=== PATIENT | female | born 1970 | race Caucasian/White ===

== ENCOUNTER 2016-10-09 17:59 | Inpatient (IN) | payer OTHER ==
--- NOTE | ~2016-10-09 | HM ---
Unit #: [id number] #: [id number] Patient: DANIS ROOT [id number] [address] [address] [id number] I MR#: [id number] NAME: DANIS ROOT. : 1970 SEX: F STUDY DATE/TIME: 10/23/2016 UNIT: C3A PCU ROOM: 330 STUDY DESCRIPTION: 24-hour Holter Attending Physician: Danis Canseco M.D. Primary Care Physician: No Primary Care Physician CARDIOLOGY REPORT EXAM 24-hour Holter monitor. FINDINGS The underlying rhythm is normal sinus rhythm with an average heart rate of 78 beats per minute, minimum heart rate of 52 beats per minute and a maximum heart rate of 122 beats per minute. The minimum heart rate of 52 beats per minute was noted at 4:19 a.m. The maximum heart rate of 122 beats per minute was noted at 8:28 a.m. The patient had a 0.76 second pause noted at 3:10 p.m. The patient had 72 single multifocal premature ventricular complex and 41 ventricular couplets noted. The patient had 7 ventricular bigeminy noted. The patient had a 7-beat run of ventricular tachycardia with a heart of 195 beats per minute noted at 6:10 a.m. The patient had 3-4 beat run of ventricular tachycardia noted. The patient had 53 single premature atrial complexes and 1 atrial couplet noted. CONCLUSION 1. Underlying rhythm is normal sinus rhythm with an average heart rate of 78 beats per minute, minimum heart rate of 52 beats per minute and a maximum heart rate of 122 beats per minute. 2. No sustained atrial or ventricular arrhythmias noted. 3. The patient had occasional single multifocal premature ventricular complex and ventricular couplets noted. 4. The patient had a total of 12 short runs of ventricular tachycardia. The longest one was a 7-beat run of ventricular tachycardia with a heart rate of 195 beats per minute. 5. Abnormal 24-hour Holter monitor. Dictated by.Tala Marcano TD: 10/23/2016 13:43 JOB #: [id number] Unit #: [id number] #: [id number] Patient: DANIS ROOT CARDIOLOGY REPORT Page 1 of 1 X Cheyenne Donovan MD <ELECTRONICALLY SIGNED> 02/14/17 1429 HOLTER MONITOR REPORT
--- NOTE | ~2016-10-09 | CO ---
Unit #: [id number] #: [id number] Patient: DANIS ROOT [id number] [facility]. [place], [place] [address] [id number] I MR#: [id number] NAME: DANIS ROOT ROOM: 330 Age: 46 Sex: F Admission Date: 10/09/2016 : 1970 Attending Physician: Luca De La Garza M.D. Consultation Date: 10/10/2016 CONSULTATION REPORT PRIMARY CARE PHYSICIAN Not listed. REASON FOR CONSULT Memory loss and forgetfulness. PATIENT IDENTIFICATION This is a 46-year-old right-handed, female, evaluated in room [address] [facility]. SOURCE OF INFORMATION Obtained from the patient's medical record and discussion with family and the patient; however, the patient is a poor historian. HISTORY OF PRESENT ILLNESS This is a 46-year-old right-handed, female with a past medical history of peptic ulcer disease that required partial gastrectomy, reformed smoker, right shoulder surgery, C-spine surgery, who presented to [facility] with change in mental status. The patient was apparently in her usual state of health until 4 days prior to presentation to our hospital. She woke up at that time about 4 days ago with difficulty using her cellphone, not knowing how to use the Internet, she was forgetful and having trouble performing simple tasks, unknowing what was going on around her. She had decreased p.o. intake. Given persistent symptoms, she was brought to the hospital for further evaluation. She has not had any symptoms of any focal motor or sensory deficits, any vision changes, slurred speech, loss of consciousness or loss of awareness, headache, pain, fever, chills, or any infectious or flu-like symptoms. Her urine tox screen was only positive for TCA. Her alcohol level was less than 5. She had a head CT done here that shows decreased attenuation in the left hemisphere and described per report is artifactual versus central etiology. Dr. Taylor reviewed imaging at the time of consultation. Her urinalysis did show some mild pyuria, but the patient is not symptomatic. She was given a gram of Rocephin in the ED and culture is pending. Also of note, her labs are notable for mild normocytic anemia and trace heme-positive stool. The patient is again a very poor historian. She lacks good insight and judgment. She is unable to contribute much in the way of history or review of systems. She has some right/left confusion. She does have some word finding difficulty. She can name and identify, but has difficulty answering some questions. PAST MEDICAL HISTORY 1. Peptic ulcer disease, requiring partial gastrectomy. 2. Right shoulder surgery. Unit #: [id number] #: [id number] Patient: DANIS ROOT 3. C-spine surgery. 4. Total abdominal hysterectomy. 5. x2. 6. Tonsillectomy. 7. Questionable hypertension. The patient is on hydrochlorothiazide according to her med rec. ALLERGIES Penicillin. FAMILY HISTORY Noncontributory. SOCIAL HISTORY The patient is , lives with her and children. She is a reformed smoker. She quit 2 years ago. She denies alcohol use or illicit drug use. REVIEW OF SYSTEMS Unable to obtain from the patient given that she is a very poor historian. PHYSICAL EXAMINATION VITAL SIGNS: Temperature 97.6; pulse 87; respirations 16; blood pressure 118/80, her blood pressure on arrival in the ER was 132/78, her lowest blood pressure has been 98/61 this morning; oxygen saturation 99% on room air. Height 5 feet 7 inches, weight 154 pounds. BMI 21. NEUROLOGIC: The patient is resting in chair comfortably, in no apparent distress. She is polite and cooperative, but not fully oriented. She is confused and unable to tell me why she is here. She is oriented to person. She is not able to tell me, where she is. I asked her if she can tell me where she thinks she might be and she looks around the room and she looks at me and says I am not sure. When I asked her about what city she is in, she states she is in [place], [place]. When I asked her where she lives, she states she lives in [facility]. When I asked her about the month, she states that it is September. When I asked her about the year, she tells me it is 2015. Her speech is clear. She has no apraxia. She can name and identify, but she does have some word-finding difficulty during exam. She can follow simple commands. When I asked her some questions about why she is here, she states that she does not know. When I asked her if she feels like she has been confused slightly, she does say yes. When I asked her how long, she states a few days. When I asked her to describe her symptoms, she is unable to elaborate further. She lacks appropriate insight and judgment. When I asked her what she would do if she was in a burning building, she states she is not sure. Cranial nerve exam, she responds to threats in the primary and peripheral visual carter. She consistently and repeatedly is able to identify correctly numbers presented in her visual carter in all 4 quadrants. No field cut appreciated. Her eyes are conjugate without ptosis or nystagmus. Her pupils are about 4+ brisk and equal. Extraocular movements are intact. Sensation of face and scalp is intact. Strength of muscles of facial expression is intact. Hearing is intact to finger rub and conversation. Tongue is midline. Uvula is midline. Palate elevation is normal. Head turning and shoulder shrug are unremarkable. Neck is supple. Motor exam, she demonstrates completely normal bulk and tone as well as strength 5/5 in all extremities. Sensory exam is intact. No extinction appreciated. Gait is normal. Romberg unremarkable. Reflexes 1/4. Toes are equivocal. Coordination, she does not have any difficulty in rapid alternating movements. She has not had any past-pointing seen. Unit #: [id number] #: [id number] Patient: DANIS ROOT No ataxia appreciated. DIAGNOSTIC STUDIES IMAGING STUDIES: CT of the head without contrast on 10/09/2016; impression per Radiology report shows decreased attenuation within the left periventricular white matter and along the flores-white matter junction in the region of the adame radiata. This could represent artifact, however, underlying focal encephalomalacia changes or encephalopathy not excluded. MRI of the brain without contrast on 10/10/2016; impression per Radiology report abnormal examination with multiple areas of abnormality restricted diffusion involving multiple vascular distributions, findings most concerning for recent shower of thromboemboli from relatively central thromboembolic source, please evaluate further clinically. Hardest area of involvement is seen in the left MCA territory. There is probable subtle mass effect but no hemorrhagic transformation, only minor pre-existing probable sequelae of small vessel disease. MRA of the head without contrast on 10/10/2016; impression per radiologist report. There is an abrupt cutoff in proximal left M2 vessel most consistent with a thromboembolus and consistent with etiology of area of recent ischemia involving the left MCA territory. On the accompanying brain MRI vascular variations are discussed above. No other area of intracranial vascular cutoff or central stenosis suspected. MRA of the neck. Full dictated report is pending, but is reported to me by Dr. Taylor is unremarkable. Chest x-ray portable single view on 10/09/2016, negative chest per Radiology report. LABORATORY RESULTS: Urine drug screen positive for TCA. White blood cell count 5.3, hemoglobin 10.3, hematocrit 30.7, and platelet count 119, repeat platelet count 120. BMP unremarkable other than estimated GFR of 51.4, her creatinine is 1.2. Alcohol level less than 5. Liver profile unremarkable. Lactic acid 1.2 with repeat lactic acid 1.2. TSH 1.70. Cholesterol 183, triglycerides 88, LDL 130, HDL 35. B12 500, ferritin 51. RPR non-reactive. Blood cultures preliminary, no growth after 24 hours x2 sets. Folic acid 10.4. Other labs and studies are as per chart and have been reviewed. CARDIOVASCULAR STUDIES: EKG; normal sinus rhythm. IMPRESSION 1. 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 2. Mild pyuria, culture pending. 3. Peptic ulcer disease, status post partial gastrectomy. 4. Hyperlipidemia, initiate intensive statin therapy. 5. Mild anemia with mildly heme-positive stool. PLAN 1. The patient has been seen and evaluated by Dr. Taylor and I have discussed the case with him at length. He discussed with the patient's Unit #: [id number] #: [id number] Patient: DANIS ROOT . He discussed with Dr. Garcia of Radiologist and also called the [facility] Stroke Team and discussed with Dr. Figueroa for a second opinion. The patient is well outside the window for any thrombectomy. She has a distal clot and again she is outside the window for acute interventional treatment. Apparently, clinically while she has cognitive deficits, is not showing any motor or sensory deficits and her abnormal findings on MRI are certainly concerning. We are putting the patient on bedrest and ordering a heparin drip. She does have some mild anemia, thrombocytopenia, and reportedly mild heme-positive stool, but at this point benefits outweigh the risks of starting heparin drip on this patient. We will monitor closely. Highest on the differential diagnosis is cardioembolic etiology and we have requested a TAY for Thursday morning and also Holter monitor. Speech therapy has been consulted to further evaluate and monitor. She has passed her bedside swallow evaluation. We started the patient on intensive statin therapy and the patient has received aspirin for an extensive workup including TAY, Holter monitor, lower extremity Dopplers to rule out DVT and hypercoagulable workup that was ordered prior to heparin drip being started. We have ordered a PICC line as the patient does not have any IV placement and again above orders have been ordered and are being initiated. No carotid disease to suggest etiology and again given distribution on MRI, I suspect a central embolic source and TAY is pending for Thursday. We will follow the patient closely along with you. She is not a candidate for acute intervention with alteplase or thrombectomy. She presented well outside the window with last known well 4 days prior to arrival. Please call for any questions or issues. We thank you very much for allowing us to assist in the care of this patient. Dictated by... Brandy Barrera A.P.R.N. for Tala Dorsey/funmi TD: 10/11/2016 03:49 JOB #: [id number] CONSULTATION REPORT X Brandy Barrera SUPERINTENDENT LOGGING X CONSULTATION REPORT
--- NOTE | ~2016-10-09 | CR72 ---
[facility] A Service of [facility] & [facility] RADIOLOGY TEXT RESULTS PATIENT: DANA ROOT LOCATION: [facility] 330-01 : [birth year] UNIT #: [id number] AGE: [address]: Dana Canseco MD SEX: F ORDER DR: [id number] [facility] [address] [facility]. [place], [place] [address] [id number] MR#: [id number] Acc #: [id number] NAME: DANA ROOT : 1970 SEX: F STUDY DATE/TIME: 10/09/2016 18:26 UNIT: [address] ROOM: [facility] STUDY DESCRIPTION: CR Chest Single View Portable Attending Physician: Kavya Barrios M.D. Ordering Physician: Barrington Watters M.D. Primary Care Physician: Primary Care Physician No MEDICAL IMAGING REPORT This report is preliminary unless electronic signature is present EXAM AP chest radiograph HISTORY Confusion, memory loss for 3 days, smoker. FINDINGS An AP view is obtained. The cardiovascular configuration is normal and the lungs are clear. Postsurgical changes of prior cervical fusion. CONCLUSION Negative chest. Dictated by... Salinas Elam M.D. THIS IS AN ELECTRONICALLY VERIFIED REPORT Salinas Elam M.D. at 10/13/2016 5:10 PM STACEY/jay TD: 10/10/2016 08:11 JOB #: [id number] MEDICAL IMAGING REPORT Page 1 of 1 COPY
--- NOTE | ~2016-10-09 | EKG ---
PATIENT: DANIS ROOT UNIT #: [id number] Ventricular Rate: 82 BPM Atrial Rate: 82 BPM P-R Interval: 158 ms QRS Duration: 84 ms Q-T Interval: 354 ms QTC Calculation(Bezet): 413 ms P [place]: 54 degrees Calculated R [place]: 28 degrees Calculated T [place]: 29 degrees Diagnosis Line: Normal sinus rhythm Diagnosis Line: Normal ECG Diagnosis Line: No previous ECGs available Diagnosis Line: Confirmed by XIOMARA BYNUM MD ([id number]) on 10/10/2016 Diagnosis Line: 12:07:42 PM INTERPRETING MD: FLETCHER VILLA
--- NOTE | ~2016-10-09 | MR18 ---
[facility] A Service of [facility] & [facility] RADIOLOGY TEXT RESULTS PATIENT: DANIS ROOT LOCATION: [facility] 330-01 : [birth year] UNIT #: [id number] AGE: [address]: Luca De La Garza MD SEX: F ORDER DR: [id number] [facility] [address] [facility]. [place], [place] [address] [id number] I MR#: [id number] Acc #: [id number] NAME: DANIS ROOT : 1970 SEX: F STUDY DATE/TIME: 10/10/2016 12:30 [facility] STUDY DESCRIPTION: MR Brain Wo Contrast Attending Physician: Luca De La Garza M.D. Ordering Physician: Lalit Taylor M.D. Primary Care Physician: Primary Care Physician No MRI CENTER REPORT This report is preliminary unless electronic signature is present. EXAM MRI brain without contrast HISTORY Acute memory loss, loss of motor skills for 2 days. Fell 2 days ago, did not hit head just was dizzy. No other symptoms. Earlier head CT abnormal. COMMENT MRI of the brain was performed without contrast using routine 1.5T imaging technique. Comparison head CT is from 10/09/2016. There are multiple areas of abnormally restricted diffusion including multiple foci of abnormality involving the left lateral frontal lobe, left insula more superiorly and posteriorly, portions of the left temporal lobe more posteriorly and superiorly and portions left parietal lobe. Additionally, there are small foci of restricted diffusion seen in the right posterior temporal to anterior occipital lobe, right posterior medial temporal lobe and right insula, right lateral frontal lobe, deep white matter of the right frontal adame radiata and right parietal deep white matter. There is a punctate focus of restricted diffusion in the left cerebellar hemisphere. The largest area of restricted diffusion is in the left MCA territory and corresponds to abnormal low attenuation on the earlier head CT. There is mild local mass effect but no midline shift and the findings are most suggestive of recent shower of thromboemboli from a relatively central source given multiple vascular distribution involvement. Mild local mass effect but no midline shift. The ventricles are normal in size and configuration. There is probably mild preexisting white matter disease due to small vessel disease. The distal right vertebral artery is hypoplastic or diseased. The intracranial flow voids at the base of the brain are patent. See the separate MR angiogram dictation however for a description of what appears to be a cutoff left M2 vessel. No MRI evidence for intracranial hemorrhage. Mastoid air cells clear. Mild paranasal sinus mucosal thickening. Borderline cerebellar STS. [facility] A Service of [facility] RADIOLOGY TEXT RESULTS PATIENT: DANIS ROOT LOCATION: C3A 330-01 : [birth year] UNIT #: [id number] AGE: [address]: Luca De La Garza MD SEX: F ORDER DR: tonsillar ectopia. I suspect some subtle signal abnormality in the bilateral globus pallidi and medial putamen on the T1-weighted sequence. This raises possibility of some underlying liver disease or prior hyperalimentation. Please correlate further clinically. IMPRESSION 1. Abnormal examination with multiple areas of abnormally restricted diffusion involving multiple vascular distributions. Findings most concerning for recent shower of thromboemboli from a relatively central thromboembolus source. Please evaluate further clinically. Largest area of involvement is seen in the left MCA territory. There is probably subtle mass effect but no hemorrhagic transformation. Only minor preexisting probable sequelae of small vessel disease. 2. See separate MR angiogram dictation. 3. I have spoken to Dr. Taylor about the case at the end of this dictation. STAT * RESULT Dictated by... Kym Garcia M.D. THIS IS AN ELECTRONICALLY VERIFIED REPORT Kym Garcia M.D. at 10/10/2016 4:00 PM HANNA/jay TD: 10/10/2016 13:34 JOB #: [id number] MRI CENTER REPORT COPY
--- NOTE | ~2016-10-09 | EKG ---
PATIENT: DANIS ROOT UNIT #: [id number] Ventricular Rate: 78 BPM Atrial Rate: 78 BPM P-R Interval: 162 ms QRS Duration: 82 ms Q-T Interval: 328 ms QTC Calculation(Bezet): 373 ms P [place]: 54 degrees Calculated R [place]: 34 degrees Calculated T [place]: 34 degrees Diagnosis Line: Normal sinus rhythm Diagnosis Line: Nonspecific T wave abnormality Diagnosis Line: Abnormal ECG Diagnosis Line: When compared with ECG of 09-OCT-2016 17:47, Diagnosis Line: T wave inversion now evident in Anterior leads Diagnosis Line: Confirmed by HARRISON BROCK MD ([id number]) on Diagnosis Line: 10/12/2016 8:04:53 PM INTERPRETING MD: TORRI
--- NOTE | ~2016-10-09 | DS ---
Unit #: [id number] #: [id number] Patient: DANIS ROOT [id number] [address] [address] [id number] I MR#: [id number] NAME: DANIS ROOT ROOM: 330 Age: 46 Sex: F Admission Date: 10/09/2016 : 1970 Discharge Date: 10/13/2016 Attending Physician: Danis Canseco M.D. DISCHARGE SUMMARY ADDENDUM Medical management, the patient's stroke has been discussed again with Dr. Taylor. With this time, he is recommending discontinuation of aspirin and placing the patient on Plavix 75 mg p.o. daily, prescription written. Dictated by... Tala Lane/funmi TD: 10/14/2016 08:47 JOB #: [id number] DISCHARGE SUMMARY Page 1 of 1 X Danis Canseco MD X DISCHARGE SUMMARY
--- NOTE | ~2016-10-09 | HP ---
Unit #: [id number] #: [id number] Patient: DANIS ROOT [id number] [address] [place], [place] [address] [id number] I MR#: [id number] NAME: DANIS ROOT. ROOM: 330 Age: 46 Sex: F Admission Date: 10/09/2016 : 1970 Attending Physician: Kavya Barrios M.D. Primary Care Physician: No Primary Care Physician HISTORY AND PHYSICAL CHIEF COMPLAINT Acute forgetfulness/memory loss. HISTORY This pleasant 46-year-old female with history of partial gastrectomy for peptic ulcer disease, chronic neck pain, is admitted for memory loss and forgetfulness. The patient's states that she was in her usual state of health until four days prior to admission. She woke up four days ago very forgetful, unable to use her cell phone/internet. She has had decreased p.o. intake, and is unable to retain information. No infectious symptoms, changes in medications, no previous symptoms in the past. She was brought to this emergency department where she does seem very forgetful for her age. Urine tox screen positive for TCAs only. Head CT shows decreased attenuation left hemisphere, which could be artifactual versus other. Urinalysis does show mild pyuria, although patient denies any symptoms of urinary tract infection. This may be related to contamination as opposed to a true UTI. In the ER she is given 1 g of Rocephin. Labs are also notable for mild normocytic anemia with trace heme positive stool. PAST MEDICAL HISTORY 1. Peptic ulcer disease requiring partial gastrectomy. 2. Right shoulder surgery. 3. C-spine surgery. 4. Patient plans to have a repeat cervical spine surgery in the past due to impingement of a nerve on the left side according to . 5. Total abdominal hysterectomy. 6. x2. 7. Tonsillectomy. ALLERGIES Penicillin. HOME MEDICATIONS Low dose hydrocodone. FAMILY HISTORY Negative for neurogenic disease. SOCIAL HISTORY The patient lives with her . She stopped smoking two years ago and does not drink alcohol. Unit #: [id number] #: [id number] Patient: DANIS ROOT REVIEW OF SYSTEMS Difficult to obtain as patient is very forgetful. PHYSICAL EXAMINATION GENERAL: Pleasant 46-year-old female currently in no acute distress. VITAL SIGNS: Temperature 97.5, pulse 89, respirations 12, blood pressure 132/78, O2 saturation 100% on room air. HEENT: Eyes - PERRLA. Extraocular muscles are intact. Pharynx is benign with partial dentures in place. NECK: Supple without adenopathy or thyromegaly. CHEST: Clear. CARDIAC: Normal S1 and S2 without murmur. ABDOMEN: Bowel sounds are present. No hepatosplenomegaly, tenderness or masses. EXTREMITIES: Without clubbing, cyanosis or edema. Pedal pulses are present. NEUROLOGIC: Patient is awake, alert. She is oriented to person and place but not to year or month. Her cranial nerves show a slight right lower facial droop. She has +5/5 strength throughout. Has difficulty with rapid alternating movements on the left, normal [id number], negative pronator drift. DIAGNOSTIC STUDIES ADMISSION LABS: Hematocrit is 30.7 without previous labs for comparison, normal white count, platelet count is 119, normal MVC. SMA 12 is normal. Alcohol level - lactic acid negative. Urine tox screen positive for TCA. Urinalysis - 2+ leukocyte esterase, 1+ protein/glucose, 10-25 white cells, but no bacteria. A few squamous cells seen. IMAGING STUDIES: Head CT - decreased attenuation left hemisphere, which could be artifactual versus other. Chest x-ray is negative. CARDIOLOGY STUDIES: EKG shows a normal sinus rhythm, rate 82, normal appearing. ASSESSMENT 1. Acute memory loss for the past four days. There are some subtle changes in left hemisphere on CT scan. Patient does have a mild right lower facial droop and difficulty with rapid alternating movements on the left. 2. Mild pyuria, rule out UTI versus contamination. 3. Peptic ulcer disease, status post partial gastrectomy. Patient was recently started on some B12 pills. 4. Chronic neck pain with plans for repeat C-spine surgery in the future. 5. Mild normocytic anemia with trace Hemoccult positive stool. PLANS 1. MRI of the brain. 2. Antibiotics pending urine C and S. 3. Neurology consultation. 4. Check B12 level, thyroid function test, VDRL. 5. Low dose aspirin with H2 jem pending above. 6. Repeat labs in the morning. Unit #: [id number] #: [id number] Patient: DANIS ROOT Dictated by Kavya Barrios M.D. AML/michelle TD: 10/10/2016 08:25 JOB #: [id number] CC: Dennis HISTORY AND PHYSICAL X Kavya Barrios MD HISTORY AND PHYSICAL
--- NOTE | ~2016-10-09 | DS ---
Unit #: [id number] #: [id number] Patient: DANA ROOT [id number] [address] [address] [id number] I MR#: [id number] NAME: DANA ROOT ROOM: 330 Age: 46 Sex: F Admission Date: 10/09/2016 : 1970 Discharge Date: 10/13/2016 Attending Physician: Dana Canseco M.D. Primary Care Physician: Primary Care Physician No DISCHARGE SUMMARY PRIMARY CARE PROVIDER MD2U. PRINCIPAL DIAGNOSES 1. Multifocal bilateral embolic cerebrovascular accident including the left lateral frontal lobe, left insula, left temporal lobe, right posterior temporal lobe, right lateral frontal lobe, and deep white matter in the right frontal adame radiata and right parietal deep white matter. 2. Nonsustained ventricular tachycardia. 3. Hyperlipidemia. 4. Normocytic anemia. 5. Mild thrombocytopenia. Discharge platelet count 132. 6. Hypokalemia. 7. Obstructive sleep apnea. 8. Pyuria with negative urine culture. 9. Chronic neck pain, maintained on narcotics. 10. Gastroesophageal reflux disease. CONSULTANTS Dr. Donovan, Cardiology; Dr. Taylor, neurology. PROCEDURES 1. TAY on 10/13/2016 with an ejection fraction of 60%. No evidence of PFO or atrioseptal defect. No clot in the left atrial appendage. Mild mitral and tricuspid regurgitation, mild to moderate diffuse atherosclerosis noted. 2. CT of the head without contrast on 10/09/2016 with subtle foci of decreased attenuation, left periventricular white matter along the flores-white junction. Chest x-ray on 10/09/2016 which was normal. 3. MRI of the brain without contrast on 10/10/2016 with some multiple areas of restricted diffusion involving multiple vascular distributions. Largest area of involvement in the left MCA territory. There is subtle mass effect, but no hemorrhagic transformation. 4. MRA of head and neck on 10/10/2016 with cutoff in the proximal left M2 vessel consistent with thromboembolic origin. 5. Bilateral extremities venous Doppler, which was negative for DVT. CLINICAL HISTORY AND HOSPITAL COURSE Ms. Root is a 46-year-old female, who presents to the emergency department with increasing forgetfulness and memory loss. She was supposedly on narcotics, the number found in her system upon presentation. CT of the head done in the emergency department was concerning for stroke. Urinalysis was also concerning for urinary tract Unit #: [id number] #: [id number] Patient: DANA ROOT infection. The patient was subsequently admitted. Dr. Taylor was consulted regarding abnormal CT scan of the head. The patient underwent MRI revealing multifocal areas of stroke concerning for embolic origin. The patient was placed on heparin drip to subsequently underwent TAY which was relatively unremarkable. Plan is for her to transition to aspirin therapy and she will be arranged a LINQ device at [facility]. The patient's mental status returned to normal on treatment. She is back on a reduced dose of narcotics, which may have been playing a role. In regard to patient's pyuria, she was placed on Rocephin, but urine culture is negative. We will discontinue any further antibiotics. The patient was also mildly anemic and mildly hypokalemic. Potassium was replaced and anemia can be followed up as an outpatient. Please note, the patient did have a short run of nonsustained ventricular tachycardia and perhaps arrhythmias are contributing to her stroke given no abnormalities or finding on her TAY, again this can be reevaluated at [facility]. DISCHARGE CONDITION Stable. DISCHARGE STATUS Discharged to home. DISCHARGE MEDICATIONS Aspirin 325 mg daily, Lipitor 40 mg at bedtime, Carafate 1 g p.o. t.i.d. with meals and at bedtime, hydrocodone 10/325 one tablet p.o. t.i.d. p.r.n. for pain. DISCHARGE INSTRUCTIONS The patient was instructed to follow a heart healthy diet. She can increase her activity as tolerated. FOLLOWUP The patient will follow up with [facility] and perhaps be evaluated for a LINQ device. Dictated by... Dana Canseco M.D. CHRIS/funmi TD: 10/14/2016 09:13 JOB #: [id number] Unit #: [id number] #: [id number] Patient: DANA ROOT DISCHARGE SUMMARY Page 1 of 1 X Dana Canseco MD X DISCHARGE SUMMARY
--- NOTE | ~2016-10-09 | US84 ---
[id number] [facility] [address] [facility]. [place], [place] [address] [id number] I MR#: [id number] Acc #: [id number] NAME: DANIS ROOT : 1970 SEX: F STUDY DATE/TIME: 10/10/2016 15:49 UNIT: C3A PCU ROOM: 330 STUDY DESCRIPTION: US LE Veins Complete Meliton Stdy Attending Physician: Luca De La Garza M.D. Ordering Physician: Lalit Taylor M.D. Primary Care Physician: Primary Care Physician No MEDICAL IMAGING REPORT This report is preliminary unless electronic signature is present EXAM Bilateral lower extremity venous Doppler INDICATION Factor 5 deficiency. Observation for DVT. Additional clinical history of bilateral lower extremity pain, swelling and shortness of air, acute onset. PROCEDURE Love-scale, color Doppler and spectral imaging deep veins of the right and left leg. COMPARISON None. FINDINGS The deep veins in the right and left leg compress normally, show normal color Doppler and spectral characteristics. IMPRESSION No evidence for DVT in the right or left leg. Dictated by... Jordan Hdz M.D. THIS IS AN ELECTRONICALLY VERIFIED REPORT Jordan Hdz M.D. at 10/13/2016 7:22 AM JOSEP/jay TD: 10/11/2016 09:15 JOB #: [id number] MEDICAL IMAGING REPORT COPY
--- NOTE | ~2016-10-09 | CO ---
Unit #: [id number] #: [id number] Patient: DANIS ROOT [id number] [address] [place], [place] [address] [id number] I MR#: [id number] NAME: DANIS ROOT ROOM: 330 Age: 46 Sex: F Admission Date: 10/09/2016 : 1970 Attending Physician: Luca De La Garza M.D. Consultation Date: 10/11/2016 CONSULTATION REPORT This patient is whom Dr. Castro was consulted. REASON FOR CONSULTATION Nonsustained ventricular tachycardia. HISTORY OF PRESENT ILLNESS This is a 46-year-old white female with history of partial gastrectomy for peptic ulcer disease. She has chronic neck pain, reformed smoker, came into the emergency room with 2- to -3 day history of worsening forgetfulness, memory loss, and unable to hold things properly with a fine hand grasp. Her was concerned and brought her in. She was found MRI of the brain and MRA of the head to have multiple embolic infarcts and ischemic left MCA territorial stroke. The patient has been started on aspirin and heparin drip. She still having some problems with memory, but is overall improving. On 6:15 a.m., she had short run of 7-beat of nonsustained ventricular tachycardia and occasional frequent PVCs. Cardiology has been asked to assist with evaluation and management. She has been scheduled a transesophageal echocardiogram in 2 days to evaluate for cardioembolic source of her stroke. On interview and exam, the patient has never has been seen by a development mechanic in the past. She denies ever having a stress test, and denies any chest pain, pain in her neck, bilateral jaws, shoulders, arms, or elbow. She denies any palpitations. No dizziness, presyncope, or syncope, and denies paroxysmal nocturnal dyspnea or orthopnea. PAST MEDICAL HISTORY 1. Partial gastrectomy for peptic ulcer disease. 2. Chronic neck pain, needs repeat cervical spine surgery for impingement of the nerve. 3. Reformed smoker. PAST SURGICAL HISTORY Cervical spine surgery about 1 year ago, had partial gastrectomy for peptic ulcer disease about 2 years ago. HOME MEDICATIONS Hydrocodone/acetaminophen 10/325 one tablet p.o. t.i.d. p.r.n.; Carafate one tablet p.o. before meals and at bedtime. ALLERGIES Penicillin. SOCIAL HISTORY Unit #: [id number] #: [id number] Patient: DANIS ROOT The patient lives with her spouse. She is on disability, because of her neck and ulcer disease. She quit smoking two years ago, was a pack a day smoker for about 30 years. No alcohol or illicit drug abuse. FAMILY HISTORY Her mother from overdose. Her father of Saniya Gehrig disease and her sibling is in generally well health. REVIEW OF SYSTEMS See details in HPI. PHYSICAL EXAMINATION GENERAL: Ms. Root is a 46-year-old white female, in no acute respiratory distress. She is awake, alert, and does have some poor memory recall. Answers some questions appropriately. Moving all extremities well. VITAL SIGNS: Blood pressure 112/70, heart rate 80, respirations 20, temperature 97.9, O2 sats 100% on room air. NECK: Trachea midline. No thyromegaly or lymphadenopathy. Normal carotid upstrokes. No jugular venous distention. HEART: S1, S2. Regular rate and rhythm. No clicks, murmurs, or rubs. LUNGS: Diminished, otherwise clear. ABDOMEN: Soft, nontender. Positive bowel sounds present. No hepatosplenomegaly. EXTREMITIES: Pedal pulses are palpable. No pedal edema. DIAGNOSTIC STUDIES LABORATORY RESULTS: Glucose is 121, BUN 17, creatinine 1.2, eGFR is 51.4. Sodium 139, potassium 3.9, chloride 103, CO2 of 24, calcium is 9.6, total protein 7.3, albumin 4.2, bilirubin total 0.4, AST 23, ALT 11, alkaline phosphatase is 86. Fasting lipid profile; cholesterol is 183, triglycerides 88, LDL is 130, HDL 35, TSH is 1.70. Alcohol level less than 5. WBCs 6.1, hemoglobin 10.1, hematocrit 30.2, and platelets is 120. Protime is 10.6 with an INR of 1.0. Urine tox screen positive for tricyclic. Urinalysis; 2+ leukocyte esterase, 1+ protein, 100 glucose, 0.2 urobilinogen, 10 to 25 wbc's. Blood cultures, preliminary findings are negative so far. IMAGING STUDIES: Chest x-ray on admission shows nothing acute. CT of the head without contrast showed decreased attenuation in the left periventricular white matter and in the flores-white junction at the region of the adame radiata. MRI of the brain without contrast showed abnormal exam with multiple areas of abnormality involving multiple vascular distributions most concerning for recent shower of thromboembolic source, that is seen mostly in the left MCA territory. There was no mass effect. No hemorrhagic transformation. MRA of the head shows an area of recent ischemia involving the left MCA territory. MRA of the neck normal. Bilateral lower extremity venous Doppler studies negative for DVT. Unit #: [id number] #: [id number] Patient: DANIS ROOT CARDIOVASCULAR STUDIES: EKG on admission showed normal sinus rhythm with ventricular rate of 82 beats per minute, nothing acute. Telemetry early this morning showed a 7-beat run of nonsustained ventricular tachycardia. Possibly 3- to -4 beat run of atrial fibrillation and occasional PACs and occasional PVC. IMPRESSION 1. Acute embolic ischemic left middle cerebral artery infarcts. 2. Nonsustained ventricular tachycardia. 3. Hyperlipidemia. 4. Pyuria. 5. Anemia. PLAN 1. Cardiology consult to evaluate the patient's nonsustained ventricular tachycardia. So far, there is only one episode while she was sleeping, questionable sleep apnea, because we will order labs today. There has not been labs drawn today to check her potassium and magnesium level. 2. Her TSH is normal. 3. She is drinking a lot of Mountain Dew, which is at the bedside, encourage the patient to stop and taking of caffeinated beverages, she was agreeable. On exam, there was no signs or symptoms of unstable angina or acute congestive heart failure. The patient will need ischemic heart disease workup at some time. She did have a 2D echo that shows her LVEF is 60% with no significant valvular disease. There is plan for a TAY on Thursday with Dr. Donovan to evaluate for cardioembolic source of her stroke. The patient is on IV Rocephin for possible UTI. 4. The patient is on a statin for her hyperlipidemia and she is also on aspirin besides the heparin drip for anticoagulation at this time. 5. At this time, we just watch her rhythm after discussion with Dr. Tineo, that is his recommendation, as she does have a Holter monitor on. 6. Further recommendations pending per Dr. Tineo. Thank you very much for allowing us to assist in care. Dictated by... Vanessa Gaitan A.P.R.N. for Tala Meneses/funmi TD: 10/11/2016 16:15 JOB #: [id number] CONSULTATION REPORT X Vanessa Gaitan APRN X CONSULTATION REPORT
--- NOTE | ~2016-10-09 | XA166 ---
[facility] A Service of [facility] & [facility] RADIOLOGY TEXT RESULTS PATIENT: DANIS ROOT LOCATION: [facility] 330- : [birth year] UNIT #: [id number] AGE: [address]: Luca De La Garza MD SEX: F ORDER DR: [id number] [facility] [address] [facility]. [place], [place] [address] [id number] I MR#: [id number] Acc #: [id number] NAME: DANIS ROOT : 1970 SEX: F STUDY DATE/TIME: 10/10/2016 14:39 UNIT: C3A [facility] ROOM: 330 STUDY DESCRIPTION: XA PICC Line Placement WO Port Attending Physician: Luca De La Garza M.D. Ordering Physician: Luca De La Garza M.D. Primary Care Physician: No Primary Care Physician MEDICAL IMAGING REPORT This report is preliminary unless electronic signature is present EXAM PICC placement with ultrasound and fluoroscopic guidance HISTORY Venous access needed for medications. TECHNIQUE The procedure was explained to the patient including risks, benefits and complications. Informed consent was obtained and a formal time-out procedure was utilized. Full barrier sterile technique was employed via standard protocol. Using full barrier sterile technique and following local anesthesia with 1% Xylocaine, a brachial vein was punctured above the elbow on the right with ultrasound guidance. Ultrasound was used to confirm vessel patency which was confirmed and permanent ultrasound images were recorded. An 0.018 guidewire was passed in the superior vena cava under fluoroscopic guidance. A dilator and sheath were placed over the wire. A 5-[place] double-lumen PICC was measured to 38 cm cut and deployed with the tip positioned in the lower superior vena cava. Line was secured in place with an antibiotic patch and adhesive dressing. Total fluoroscopy time 0.1 minutes with a total dose of 1 mGy. IMPRESSION Successful placement of a 5-[place] double-lumen PICC via the right brachial vein above the elbow with ultrasound and fluoroscopic guidance. Dictated by... Barrington Saucedo M.D. THIS IS AN ELECTRONICALLY VERIFIED REPORT Barrington Saucedo M.D. at 10/12/2016 9:40 PM RLF/rnr [facility] [place] Service of [facility] & [facility] RADIOLOGY TEXT RESULTS PATIENT: DANIS ROOT LOCATION: [facility] 330-01 : [birth year] UNIT #: [id number] AGE: [address]: Luca De La Garza MD SEX: F ORDER DR: TD: 10/11/2016 02:23 JOB #: [id number] MEDICAL IMAGING REPORT COPY
--- NOTE | ~2016-10-09 | MR134 ---
[facility] A Service of [facility] & [facility] RADIOLOGY TEXT RESULTS PATIENT: DANIS ROOT LOCATION: [facility] 330- : [birth year] UNIT #: [id number] AGE: [address]: Luca De La Garza MD SEX: F ORDER DR: [id number] [facility] [address] [facility]. [place], [place] [address] [id number] I MR#: [id number] Acc #: [id number] NAME: DANIS ROOT : 1970 SEX: F STUDY DATE/TIME: 10/10/2016 12:58 UNIT: [address] ROOM: [facility] STUDY DESCRIPTION: MR MRA Neck Wo Contrast Attending Physician: Luca De La Garza M.D. Ordering Physician: Lalit Taylor M.D. Primary Care Physician: No Primary Care Physician MRI CENTER REPORT This report is preliminary unless electronic signature is present. EXAM MRA neck without contrast 10/10/2016 HISTORY Memory loss, evidence for recent stroke on accompanying MRI brain, symptom onset 4 days ago. COMMENTS MR angiography performed neck vessels centered at the level of the carotid bifurcation without contrast. FINDINGS By NASCET criteria there is essentially 0% stenosis at either carotid bifurcation. The left vertebral artery is dominant and patent. The right vertebral artery is more hypoplastic but grossly patent. Aortic arch branch pattern is normal. IMPRESSION Essentially normal MR angiography neck vasculature by NASCET criteria, 0% stenosis either carotid bifurcation. Dictated by... Kym Garcia M.D. THIS IS AN ELECTRONICALLY VERIFIED REPORT Kym Garcia M.D. at 10/10/2016 5:31 PM Jane TD: 10/10/2016 16:52 JOB #: [id number] MRI CENTER REPORT COPY
--- NOTE | ~2016-10-09 | CT71 ---
[facility] A Service of [facility] & [facility] RADIOLOGY TEXT RESULTS PATIENT: DANIS ROOT LOCATION: [facility] 330-01 : [birth year] UNIT #: [id number] AGE: [address]: Luca De La Garza MD SEX: F ORDER DR: [id number] [facility] [address] [facility] [place], [place] [address] [id number] I MR#: [id number] Acc #: [id number] NAME: DANIS ROOT : 1970 SEX: F STUDY DATE/TIME: 10/09/2016 18:51 [facility] ROOM: 330 STUDY DESCRIPTION: CT Head Wo Contrast Attending Physician: Kavya Barrios M.D. Ordering Physician: Barrington Watters M.D. Primary Care Physician: No Primary Care Physician MEDICAL IMAGING REPORT This report is preliminary unless electronic signature is present EXAM Noncontrast head CT 10/09/2016 HISTORY Memory loss, forgetting things, disoriented x2 days. TECHNIQUE This CT exam was performed with one or more of the following radiation dose reduction techniques: automatic exposure control, adjustment of mA and/or kV according to patient size, and iterative reconstruction. FINDINGS Axial noncontrast imaging of the brain demonstrates several subtle areas of decreased attenuation involving the left periventricular white matter particularly anterior or lateral to the left frontal horn and along the left adame radiata. This is predominately at the flores-white junction. Etiology unclear. This could be artifactual but underlying ischemic change not excluded. No evidence of mass, mass effect or midline shift. No hemorrhage or abnormal extraaxial fluid collections. Skull base, mastoids and sinuses unremarkable. IMPRESSION Subtle foci of decreased attenuation within the left periventricular white matter and along the flores-white junction in the region of the adame radiata. This could just represent artifact however underlying focal encephalomalacic changes or encephalopathy not excluded. Follow up may be warranted. Dictated by... Lilia Mcdermott M.D. THIS IS AN ELECTRONICALLY VERIFIED REPORT Lilia Mcdermott M.D. at 10/10/2016 5:11 PM [facility] A Service of [facility] & [facility] RADIOLOGY TEXT RESULTS PATIENT: DANIS ROOT LOCATION: [facility] 330-01 : [birth year] UNIT #: [id number] AGE: [address]: Luca De La Garza MD SEX: F ORDER DR: Hector TD: 10/10/2016 08:21 JOB #: [id number] MEDICAL IMAGING REPORT COPY
--- NOTE | ~2016-10-09 | MR122 ---
[facility] A Service of [facility] & [facility] / [facility] RADIOLOGY TEXT RESULTS PATIENT: DANIS ROOT LOCATION: [facility] 330- : [birth year] UNIT #: [id number] AGE: [address]: Luca De La Garza MD SEX: F ORDER DR: [id number] [facility] [address] [place], [place] [address] [id number] MR#: [id number] Acc #: [id number] NAME: DANIS ROOT : 1970 SEX: F STUDY DATE/TIME: 10/10/2016 12:48 UNIT: [facility] ROOM: [facility] STUDY DESCRIPTION: MR MRA Head Wo Contrast Attending Physician: Luca De La Garza M.D. Ordering Physician: Brandy Barrera A.P.R.N. Primary Care Physician: No Primary Care Physician MRI CENTER REPORT This report is preliminary unless electronic signature is present. EXAM MR angiogram [place] of [place] vasculature. HISTORY Memory loss. Abnormal MRI brain with areas of apparent recent ischemia. COMMENT MR angiography performed [place] vasculature. There is cutoff seen left M2 vessel about 5 mm from the bifurcation which is most consistent with a thromboembolus and is consistent with the largest area of recent ischemia on the accompanying brain MRI in the left MCA territory. No other discrete vascular cutoff is appreciated. There is origin to the left posterior cerebral artery distribution via a large left posterior communicator. The left P1 vessel is hypoplastic to aplastic. The distal right vertebral artery probably terminates in a PICA vessel and the left vertebral artery supplies the basilar. There may be a tiny right posterior communicator and there is probably a tiny anterior communicator. There is some motion limitation of the study. No focal central stenosis is suspected. IMPRESSION There is an abrupt cutoff proximal left M2 vessel, most consistent with a thromboembolus and consistent with the etiology of the area of recent ischemia involving the left MCA territory on the accompanying brain MRI. Vascular variations are discussed above. No other area of intracranial vascular cutoff or central stenosis is suspected. Findings have been discussed with Dr. Taylor by myself. STAT * RESULT Dictated by... [facility] A Service of [facility] & [facility] / [facility] RADIOLOGY TEXT RESULTS PATIENT: DANIS ROOT LOCATION: [place] [address] : [birth year] UNIT #: [id number] AGE: [address]: Luca De La Garza MD SEX: F ORDER DR: Kym Garcia M.D. THIS IS AN ELECTRONICALLY VERIFIED REPORT Kym Garcia M.D. at 10/10/2016 4:00 PM HANNA/jose de jesus TD: 10/10/2016 13:47 JOB #: [id number] MRI CENTER REPORT COPY
[2016-10-09 17:53] LABS: URINE SOURCE CLEAN CATCH
[2016-10-09 17:58] LABS: URINE APPEARANCE CLEAR; URINE BILIRUBIN NEG (NEG); URINE BLOOD NEG (NEG); URINE COLOR YELLOW; URINE GLUCOSE 100 MG/DL (NEG); URINE KETONE NEG (NEG); URINE LEUKOCYTE ESTERASE 2+ (NEG); URINE NITRATE NEG (NEG); URINE PH 6.5 (5-8); URINE PROTEIN 1+ (NEG); URINE SPECIFIC GRAVITY 1.025 (1.003-1.035); URINE UROBILINOGEN 0.2 MG/DL (NEG)
[~2016-10-09 17:59] MED LIST: DOXYCYCLINE PO; NO MEDICATIONS; TYLENOL #3 PO
[2016-10-09 18:01] LABS: URBCS1 AUWI 0-2 /[HPF] (0-2); URINE BACTERIA AUWI NEG (NEGATIVE); URINE SQUAMOUS EPITHELIAL CELL FEW /[HPF]
[2016-10-09 18:09] LABS: AMPHETAMINE NEG (NEG); BARBITURATES NEG (NEG); BENZODIAZEPINES NEG (NEG); COCAINE NEG (NEG); MARIJUANA NEG (NEG); OPIATES NEG (NEG); TRICYCLIC ANTIDEPRESSANTS POS (NEG); U METHADONE NEG (NEG)
[2016-10-09 18:11] LABS: BASOPHIL% 0.9 % (0-2.5); EOSINOPHIL# 0.1 X10e3 (0-0.7); EOSINOPHIL% 2.1 % (0.0-7.0); HEMATOCRIT 30.7 % (35.0-45.0); HEMOGLOBIN 10.3 gm/dL (12.0-16.0); LYMPHOCYTE% 18.2 % (17.0-45.0); MEAN CELL VOLUME 84.9 FL (83-96); MEAN CORPUSCULAR HEMOGLOBIN 28.6 PG (28-34); MEAN CORPUSCULAR HGB CONC 33.6 g/dL (30-36); MEAN PLATELET VOLUME 6.8 FL (6.5-11.5); MONOCYTE# 0.3 X10e3 (0-1.0); MONOCYTE% 5.9 % (3.0-12.0); NEUTROPHIL# 3.9 X10e3 (1.5-7.1); NEUTROPHIL% 72.9 % (40-75); PLATELET COUNT 119 X10e3 (140-420); RED BLOOD COUNT 3.62 X10e (3.90-5.30); RED CELL DISTRIBUTION WIDTH 14.8 % (11.0-15.5); WHITE BLOOD COUNT 5.3 X10e3 (4.0-10.5)
[2016-10-09 18:13] LABS: DIFF IND NO
[2016-10-09 18:54] LABS: ALBUMIN SERUM 4.2 g/dL (3.5-5.0); ALKALINE PHOSPHATASE 86 U/L (32-92); ALT (SGPT) 11 U/L (10-40); AST (SGOT) 23 U/L (10-42); BILIRUBIN, DIRECT 0.1 mg/dL (0.0-0.2); BILIRUBIN,INDIRECT 0.3 mg/dL (0.0-0.9); BILIRUBIN,TOTAL 0.4 mg/dL (0.2-2.0); BLOOD UREA NITROGEN 17 mg/dL (9-23); BUN/CREATININE RATIO 14.16; CALCIUM SERUM 9.6 mg/dL (8.4-10.2); CARBON DIOXIDE 24 mmol/L (22-31); CHLORIDE 103 mmol/L (100-111); CREATININE SERUM 1.2 mg/dL (0.6-1.4); GLOM FILT RATE Estimated 51.4 mL/min (>60); GLUCOSE FASTING 100 mg/dL (70-110); POTASSIUM 3.9 mmol/L (3.5-5.1); PROTEIN TOTAL SERUM 7.3 g/dL (6.0-8.3); SODIUM 139 mmol/L (135-145)
[2016-10-09 18:57] LABS: ALCOHOL BLOOD <5 mg/dL (0)
[2016-10-10] MEDS ORDERED: HYDROCODON-ACE1 EAC5 PO (00:20)
[2016-10-10] MEDS ORDERED: CARAFATE1 GM PO (00:21)
[2016-10-10 06:06] LABS: BASOPHIL% 0.6 % (0-2.5); EOSINOPHIL# 0.2 X10e3 (0-0.7); EOSINOPHIL% 2.7 % (0.0-7.0); HEMATOCRIT 30.2 % (35.0-45.0); HEMOGLOBIN 10.1 gm/dL (12.0-16.0); LYMPHOCYTE# 1.2 X10e3 (1.0-3.5); LYMPHOCYTE% 19.1 % (17.0-45.0); MEAN CELL VOLUME 84.9 FL (83-96); MEAN CORPUSCULAR HEMOGLOBIN 28.5 PG (28-34); MEAN CORPUSCULAR HGB CONC 33.6 g/dL (30-36); MEAN PLATELET VOLUME 7.3 FL (6.5-11.5); MONOCYTE# 0.4 X10e3 (0-1.0); NEUTROPHIL# 4.3 X10e3 (1.5-7.1); NEUTROPHIL% 71.6 % (40-75); PLATELET COUNT 120 X10e3 (140-420); RED BLOOD COUNT 3.56 X10e (3.90-5.30); RED CELL DISTRIBUTION WIDTH 14.9 % (11.0-15.5); WHITE BLOOD COUNT 6.1 X10e3 (4.0-10.5)
[2016-10-10 06:12] LABS: DIFF IND NO
[2016-10-10 06:54] LABS: CHOLESTEROL 183 mg/dL (0-200); HDL CHOLESTEROL 35 mg/dL (35-95); LDL CHOLESTEROL 130 mg/dL (-130); LDL/HDL RATIO 4 RATIO (0-4); TRIGLYCERIDES 88 mg/dL (10-160)
[2016-10-10 06:56] LABS: FERRITIN 51 ng/mL (11-307)
[2016-10-10] MEDS ORDERED: MR XX (10:06)
[2016-10-10 18:10] LABS: PROTHROMBIN TIME (PATIENT) 10.6 SECONDS (9.6-11.5)
[2016-10-11 14:40] LABS: BUN/CREATININE RATIO 14.54; CALCIUM SERUM 8.6 mg/dL (8.4-10.2); CREATININE SERUM 1.1 mg/dL (0.6-1.4); GLOM FILT RATE Estimated 56.8 mL/min (>60); POTASSIUM 3.7 mmol/L (3.5-5.1)
[2016-10-12 05:54] LABS: HEMATOCRIT 27.3 % (35.0-45.0); HEMOGLOBIN 9.3 gm/dL (12.0-16.0); MEAN CELL VOLUME 85.8 FL (83-96); MEAN CORPUSCULAR HEMOGLOBIN 29.2 PG (28-34); MEAN PLATELET VOLUME 7.3 FL (6.5-11.5); RED BLOOD COUNT 3.18 X10e (3.90-5.30); RED CELL DISTRIBUTION WIDTH 14.9 % (11.0-15.5); WHITE BLOOD COUNT 4.8 X10e3 (4.0-10.5)
[2016-10-12 06:37] LABS: BUN/CREATININE RATIO 12.72; CALCIUM SERUM 8.8 mg/dL (8.4-10.2); CREATININE SERUM 1.1 mg/dL (0.6-1.4); GLOM FILT RATE Estimated 56.8 mL/min (>60); POTASSIUM 3.6 mmol/L (3.5-5.1)
[2016-10-13 09:30] LABS: BASOPHIL% 0.8 % (0-2.5); EOSINOPHIL# 0.2 X10e3 (0-0.7); EOSINOPHIL% 3.6 % (0.0-7.0); HEMATOCRIT 26.7 % (35.0-45.0); HEMOGLOBIN 8.9 gm/dL (12.0-16.0); LYMPHOCYTE# 1.1 X10e3 (1.0-3.5); LYMPHOCYTE% 25.9 % (17.0-45.0); MEAN CELL VOLUME 85.4 FL (83-96); MEAN CORPUSCULAR HEMOGLOBIN 28.4 PG (28-34); MEAN CORPUSCULAR HGB CONC 33.3 g/dL (30-36); MEAN PLATELET VOLUME 7.2 FL (6.5-11.5); MONOCYTE# 0.2 X10e3 (0-1.0); MONOCYTE% 4.8 % (3.0-12.0); NEUTROPHIL# 2.7 X10e3 (1.5-7.1); NEUTROPHIL% 64.9 % (40-75); PLATELET COUNT 132 X10e3 (140-420); RED BLOOD COUNT 3.13 X10e (3.90-5.30); WHITE BLOOD COUNT 4.1 X10e3 (4.0-10.5)
[2016-10-13 09:31] LABS: DIFF IND NO
[2016-10-13 10:31] LABS: BLOOD UREA NITROGEN 12 mg/dL (9-23); CALCIUM SERUM 8.7 mg/dL (8.4-10.2); CARBON DIOXIDE 21 mmol/L (22-31); CHLORIDE 116 mmol/L (100-111); GLOM FILT RATE Estimated ABOVE60 mL/min (>60); GLUCOSE FASTING 87 mg/dL (70-110); POTASSIUM 3.4 mmol/L (3.5-5.1); SODIUM 144 mmol/L (135-145)
[2016-10-13] MEDS ORDERED: LIPITOR40 MG PO (16:15)
[2016-10-13] MEDS ORDERED: BAYER ASPIRIN325 M1 PO (16:21)
[2016-10-13] MEDS ORDERED: CLOPIDOGREL75 MG PO (16:22)
[2016-10-13 21:40] LABS: PROTEIN C ACTIVITY 190 % (70-180); PROTEIN S 75 % (60-140)
[2016-10-15 23:32] LABS: ANA SCREEN Negative (Negative); CARDIOLIPIN IGG (LUPUS) <14 GPL (<=14); CARDIOLIPIN IGM (LUPUS) <12 MPL (<=12); DRVVT 1:1: MIX NOT CORRECTED (CORRECTED); DRVVT CONFIRM Positive (Negative); DRVVT MIX INTERP (LUPUS) Positive (()); HEXAGONAL PHASE CONF (LUPUS) Positive (Negative); IMM PTT LA MIX NOT CORRECTED (()); INR LUPUS 1.2 (()); PROTROMBIN TIME LUPUS 11.8 sec (9.0-11.5); PT (LA MIX STUDY) 11.8 sec (<=11.5); PTT MIX INTERP Has been added (()); PTT-LA 99 sec (<=40); PTT-LA SCREEN (LUPUS) 99 sec (<=40); THROMBIN TIME LUPUS 17 sec (13-19); dRVVT SCREEN (LUPUS) 80 sec (<=45)
== END 2016-10-13 16:52 | disposition home or self-care (01) | DRG 65 ==
LOC: CED 17:59 → CEDOF 21:20 → C3A PCU 23:01
PROVIDERS: Emergency Medicine; Internal Medicine; Nurse Practitioner; Psychiatry & Neurology Neurology
PROC: B246YZZ Ultrasonography of Right and Left Heart using Other Contrast (ICD-10-PCS; 2016-10-10)
PROC: 02HV33Z Insertion of Infusion Device into Superior Vena Cava, Percutaneous Approach (ICD-10-PCS; 2016-10-10)
PROC: B518YZA Fluoroscopy of Superior Vena Cava using Other Contrast, Guidance (ICD-10-PCS; 2016-10-10)
PROC: B548ZZA Ultrasonography of Superior Vena Cava, Guidance (ICD-10-PCS; 2016-10-10)
PROC: B246ZZ4 Ultrasonography of Right and Left Heart, Transesophageal (ICD-10-PCS; principal; 2016-10-13)
DX: I63.443 Cerebral infarction due to embolism of bilateral cerebellar arteries (principal); I47.2 Ventricular tachycardia; E78.5 Hyperlipidemia, unspecified; D64.9 Anemia, unspecified; D69.6 Thrombocytopenia, unspecified; E87.6 Hypokalemia; G47.33 Obstructive sleep apnea (adult) (pediatric); M54.2 Cervicalgia; K21.9 Gastro-esophageal reflux disease without esophagitis; R82.99 Other abnormal findings in urine; Z71.89 Other specified counseling; Z90.710 Acquired absence of both cervix and uterus; Z88.0 Allergy status to penicillin; Z87.891 Personal history of nicotine dependence
CPT/HCPCS: 36415; 70450; 70544; 70547; 70551; 71010; 76937; 77001; 80048; 80061; 80076; 80307; 81003; 81240; 81241; 81291; 82607; 82728; 82746; 82947; 83036; 83090; 83605; 83735; 84443; 85025; 85027; 85301; 85303; 85306; 85597; 85598; 85610; 85613; 85670; 85730; 86038; 86039; 86140; 86146; 86147; 86148; 86592; 87040; 87086; 92523-GN; 93005; 93225; 93226; 93306; 93312; 93970; 94760; 97161; 97165; 97535; 99285; C1751; G0480; J0696; J1644; J2250; J3010